=== PATIENT | female | born 2000 | race Caucasian/White ===

== ENCOUNTER 2018-04-11 06:49 | Day surgery (SDC) | payer OTHER, SELFPAY ==
[2018-04-09 08:52] VITALS: BMI 30.7
[2018-04-11] MEDS: LACTATED RINGERS 1,000 ML 42 ML IV (07:05)
[2018-04-11 07:10] VITALS: BP 108/68; PULSE 82; RESP 16; TEMP 36.9; O2SAT 100; BMI 30.7
--- NOTE | 2018-04-11 07:14 | SUR.OPER ---
Lithotomy on padded OR bed, head on pillow, arms secured on padded arm boards at <90 degrees abduction. Legs secured in padded yellow fins stirrups.
--- NOTE | 2018-04-11 07:38 | PM.PREOP ---
Pre-operative Note Interval Note Pre-op Check: Yes History & Physical exam performed today by Physician Changes: No
--- NOTE | 2018-04-11 07:38 | PM.HP.1 ---
History of Present Illness Date Patient Seen: 04/11/18 Time Patient Seen: 07:38 Chief complaint: [id number] Narrative: Patient is a 17-year-old with a known history of endometriosis who presents for Kyleena IUD insertion Patient is having pelvic pain. She was unable to tolerate Kyleena IUD insertion in the office. Patient History Medical History Asthma (Acute) Depression (Acute) Dysmenorrhea (Acute) Endometriosis (Acute) Menorrhagia (Acute) Pelvic pain (Acute) [place] teeth removed (Acute ~12/04/16) Surgical History Hx of tympanostomy tubes (Acute ~05/1999) Personal history of endometriosis (Resolved 09/09/17) Family & Social History Social History: household members family Tobacco & Substance use: Smoking Status Never smoker Meds Home Medications Medication Instructions Recorded Confirmed Type montelukast [Singulair] 10 mg PO QDAY #0 08/23/17 04/11/18 History ProAir HFA See Label Instructions .ROUTE 09/09/17 09/09/17 History .COMPLEX ondansetron 4 mg PO Q4H PRN 09/09/17 04/11/18 History norethindrone (contraceptive) 0.35 0.35 mg PO DAILY #28 tab 02/24/18 04/11/18 Rx mg tablet diclofenac sodium 75 mg 75 mg PO BID 04/01/18 04/11/18 History tablet,delayed release lamotrigine 100 mg tablet 100 mg PO DAILY 04/01/18 04/11/18 History propranolol 20 mg tablet 20 mg PO ONCE tab 04/01/18 04/11/18 History Allergies Allergy/AdvReac Type Severity Reaction Status Date / Time No Known Drug Allergies Allergy Verified 04/09/18 08:54 Exam Vital Signs (past 8 hours): - 04/11/18 07:10 Temperature 98.4 F Pulse Rate 82 Respiratory Rate 16 Blood Pressure 108/68 Pulse Oximetry 100 Oxygen Delivery Method Room Air Narrative Exam Narrative: HEENT: No thyromegaly, no anterior cervical or supraclavicular lymphadenopathy. Lungs:Clear to auscultation bilaterally, no wheezes. Cardiovascular: Regular rate and rhythm, no murmurs, rubs, or gallops Abdomen: Well-healed laparoscopy scars. No hepatosplenomegaly. No masses palpable. External genitalia: Normal Vagina: deferred Cervix: deferred Bimanual exam: deferred Assessment & Plan (1) Endometriosis of other specified sites: Current visit: Yes Status: Acute (2) Pelvic pain in female: Current visit: Yes Status: Acute Plan: Assessment/Plan Narrative: Assessment: 17-year-old with laparoscopic diagnosis endometriosis and persistent pelvic pain Plan: Kyleena IUD insertion The risks, benefits, and alternatives to the procedure were explained to the patient. The risks including bleeding, infection, and uterine perforation. She understands these risks and agrees to proceed. A consent form was signed. Time Spent With Patient Time with patient: less than 15 minutes
[2018-04-11] MEDS: MIDAZOLAM 2 MG/2 ML VIAL IV (07:48)
[2018-04-11 08:06] VITALS: BP 101/61; PULSE 97; RESP 16; TEMP 36.4; O2SAT 100
[2018-04-11 08:24] VITALS: BP 105/65; PULSE 81; O2SAT 100
[2018-04-11] MEDS: KETOROLAC 30 MG/ML VIAL IV (08:28)
[2018-04-11 08:41] VITALS: BP 107/68; PULSE 77; RESP 12; TEMP 36.7; O2SAT 100
[2018-04-11] MEDS: OXYCODONE/ACETAMINOPHEN 5/325 TABLET 1 TAB PO (08:57)
--- NOTE | 2018-04-11 09:00 | SUR.PHASEII ---
pt sat on the edge of the bed, expressed desire to d/c. IV removed. pt dressed then c/o 7/10 vaginal pain and nausea. Quease in place. Percocet provided. HOB lowered. Mom at bedside.
--- NOTE | 2018-04-11 09:06 | SUR.PHASEII ---
Pt rested for a few minutes and requested to d/c. Transferred self to wheelchair.
--- NOTE | 2018-04-12 10:05 | PM.GYNOP.1 ---
Operative Date/Time/Diagnoses Date of procedure: 04/11/18 Time of procedure: 08:20 Pre-op diagnosis: Endometriosis Pelvic pain Unable to tolerate IUD placement in the office Post-op diagnosis: same Procedure: Procedures Operation Date: 04/11/18 07:45 Actual Procedures Side Surgeon p Intrauterine Device Insertion Verónica Perez MD Indications: Endometriosis Pelvic Unable to tolerate IUD placement in the office Surgeon: Verónica Perez Anesthesia Type: Sedation Operative Notes Findings: 5-6 week size anteverted uterus Closure Type: not applicable Specimen(s): none Estimated blood loss (mL): 0 Blood products transfused: none Procedure in detail: After informed consent was obtained, the patient was taken to the operating room where she was placed in the dorsal supine position. After adequate IV sedation, the patient was placed in the dorsal lithotomy position, and prepped on the external genitalia. A pediatric bivalve speculum was placed into the vagina and the anterior lip of the cervix grasped with a single-tooth tenaculum. The cervix was cleaned x3 with Betadine. The Kyleena IUD passed easily into the endometrial cavity to the fundus of the uterus and was released without difficulty. The strings were cut to 1.5 cm. Single-tooth tenaculum was removed from the anterior lip of the cervix. The bivalve speculum was removed from the vagina. Sponge, lap, and instrument counts were correct x2. The patient tolerated the procedure well, and was taken to PACU in stable condition. Complications: none Post-operative Condition: stable Disposition: same day surgery Plan for aftercare: Home after recovery
== END 2018-04-11 09:05 | disposition home or self-care (01) ==
PROVIDERS: PCP Family Medicine; Visit Provider Obstetrics & Gynecology
PROC: (CPT 58300; principal; 2018-04-11 07:45)
DX: Z30.430 Encounter for insertion of intrauterine contraceptive device (principal); J45.909 Unspecified asthma, uncomplicated; N80.9 Endometriosis, unspecified
CPT/HCPCS: 58300; J1885; J2250; J2704; J3010

== ENCOUNTER → 2019-09-11 13:42 | Outpatient (CLI) | payer OTHER, SELFPAY ==
--- NOTE | 2019-09-11 | DI.US.S_ITS ---
ULTRASOUND OF LEFT BREAST: 09/11/2019 CLINICAL: Focal left breast pain. No prior exams were available for comparison. Real-time ultrasound of the left breast was performed. Watson scale images of the real-time examination were reviewed. No significant abnormalities were seen sonographically in the left breast. IMPRESSION: NEGATIVE There is no sonographic evidence of malignancy. There is no abnormality seen in the left breast to correspond with the area of clinical concern and pain in the sub-areolar depth, however, clinical followup is recommended for persistent or worsening symptoms or development of any clinically suspicious findings. This exam was interpreted at Station ID: [id number]. Electronically Signed By: Phong Mars M.D. aty/:09/11/2019 19:08:30 Ultrasound BI-RADS: 1 Negative
--- NOTE | 2019-09-11 | DI.US.S_ITS ---
ULTRASOUND OF RIGHT BREAST: 09/11/2019 CLINICAL: Focal right breast pain. No prior exams were available for comparison. Real-time ultrasound of the right breast was performed. Watson scale images of the real-time examination were reviewed. No significant abnormalities were seen sonographically in the right breast. IMPRESSION: NEGATIVE There is no sonographic evidence of malignancy. There are no abnormalities seen in the right breast to correspond with the areas of clinical concern and pain at 9 and 12 o'clock as well as the sub-areolar depth, however, recommend clinical follow up for persistent or worsening symptoms or development of any clinically suspicious findings. This exam was interpreted at Station ID: [id number]. Electronically Signed By: Phong Mars M.D. aty/:09/11/2019 19:06:27 Ultrasound BI-RADS: 1 Negative
[2019-09-11 15:45] LABS: Prolactin 11.6 ng/mL (3.0-18.6)
[2019-09-11 16:02] LABS: TSH w/ Reflex to FT4 3.04 uIU/mL (0.47-4.68)
== END ==
PROVIDERS: PCP Family Medicine; Referring Provider Physician Assistant; Visit Provider Physician Assistant
DX: N64.4 Mastodynia (principal); F41.8 Other specified anxiety disorders
CPT/HCPCS: 36415; 76642; 84146; 84443

== ENCOUNTER → 2019-11-01 08:40 | Outpatient (CLI) | payer OTHER, SELFPAY ==
[2019-11-02 08:47] LABS: COVID19 Sendout Not Detected (Not Detect)
== END ==
PROVIDERS: PCP Family Medicine; Visit Provider Physician Assistant
DX: Z11.59 Encounter for screening for other viral diseases (principal)
CPT/HCPCS: 87635

== ENCOUNTER 2019-11-04 08:29 | Day surgery (SDC) | payer OTHER, SELFPAY ==
[2019-11-04] VITALS (13 sets, daily range): BP systolic 79–128; BP diastolic 41–83; PULSE 91–111; RESP 8–16; TEMP 36.1–37.2; O2SAT 92–100; BMI 22.8
--- NOTE | 2019-11-04 09:25 | PM.HP.1 ---
History of Present Illness History of Present Illness Date Patient Seen: 11/04/19 Time Patient Seen: 09:26 Chief complaint: [id number] Narrative: Change in bowel movements with defecatory difficulty Patient History Medical History (Updated 04/11/18 @ 07:41 by Verónica Perez MD) Asthma (Acute) Depression (Acute) Dysmenorrhea (Acute) Endometriosis (Acute) Menorrhagia (Acute) Pelvic pain (Acute) Surgical History (Updated 09/17/17 @ 11:29 by Sara Harris LPN) Hx of tympanostomy tubes (Acute ~05/1999) Personal history of endometriosis (Resolved 09/09/17) [place] teeth removed (Acute ~12/04/16) Family & Social History Social History: household members family Tobacco & Substance use: Smoking Status Never smoker alcohol intake never Substance Use Type does not use Meds Home Medications and Allergies Home Medications Medication Instructions Recorded Confirmed Type montelukast [Singulair] 10 mg PO QDAY #0 08/23/17 11/04/19 History ProAir HFA See Rx Instructions .ROUTE .COMPLEX 09/09/17 11/04/19 History ondansetron 4 mg PO Q4H PRN 09/09/17 04/11/18 History norethindrone (contraceptive) 0.35 0.35 mg PO DAILY #28 tab 02/24/18 11/04/19 Rx mg tablet lamotrigine 100 mg tablet 100 mg PO DAILY 04/01/18 11/04/19 History bupropion HCl [Wellbutrin XL] 150 mg PO DAILY 11/04/19 11/04/19 History buspirone 10 mg PO BID 11/04/19 11/04/19 History fluticasone propion-salmeterol 1 inh INHALATION BID 11/04/19 11/04/19 History [Advair Diskus] Allergies Allergy/AdvReac Type Severity Reaction Status Date / Time No Known Drug Allergies Allergy Verified 11/04/19 08:42 Exam Vital Signs (past 8 hours): - 11/04/19 08:50 Temperature 98.9 F Pulse Rate 102 H Respiratory Rate 16 Blood Pressure 121/83 Pulse Oximetry 99 Oxygen Delivery Method Room Air Narrative Exam Narrative: Oropharynx free of lesions Chest clear to auscultation percussion Cardiac exam reveals no S3 or murmur Assessment & Plan Assessment & Plan narrative: Abnormal bowel movements need for colonoscopy to rule out structural lesion particularly given the scybalous nature of some of her stools. Risks, benefits, alternatives have been explained.
--- NOTE | 2019-11-04 09:27 | PM.OP.ENDO ---
Operative Date/Time/Diagnoses Date of procedure: 11/04/19 Time of procedure: 09:27 Pre-op diagnosis: See indication and findings Procedure & Clinicians Study performed: Colonoscopy Same procedure as scheduled: Yes Indications: Defecatory difficulty, change in bowel movements, probable IBS C Surgeon: Milton Castro Procedure Notes Procedure in detail: After informed consent was obtained the patient was placed in left lateral decubitus position. The video colonoscope was introduced the rectum slowly advanced to cecum. On slow withdrawal mucosa was carefully examined. The scope was removed. The patient tolerated the procedure well. Blood loss none Complications none Sedation Total sedation time 21 MINUTES VERSED 12 MG FENTANYL 200 micro g IV titration Findings 1. Even at the above doses sedation very difficult. Scope passed to distal descending colon. Was elected to stop procedure and have anesthesia staff in for better sedation.
[2019-11-04] MEDS: ONDANSETRON 4 MG/2 ML INJ IV (09:43)
[2019-11-04] MEDS: MIDAZOLAM 5 MG/5 ML VIAL 12 MG IV (09:47)
[2019-11-04] MEDS: fentaNYL 250 MCG/5 ML INJ IV (09:48)
--- NOTE | 2019-11-04 09:51 | SUR.OPER ---
PROCEDURE ABORTED DUE TO PATIENT VERBALIZING PAIN
--- NOTE | 2019-11-04 09:58 | SUR.PHASEI ---
Received patient to Phase I recovery with incomplete procedure due to patient's anxiety and large amount of sedation needed. Patient received 12 of versed IV and 200 fentanyl and was still unable to tolerate procedure. Patient denies pain. VSS. Patient states that she has always been anxious and worries about everything. Lead nurse and anesthesia aware of situation.
--- NOTE | 2019-11-04 10:08 | SUR.PHASEI ---
Advised patient and mother that patient would be able to finish the rest of her procedure under a general anesthesia. V/U. Mother signed consent.
[2019-11-04] MEDS: LACTATED RINGERS 1,000 ML 100 ML IV (10:10)
--- NOTE | 2019-11-04 10:42 | P.OP.ENDO_ITS ---
Operative Date/Time/Diagnoses Date of procedure: 11/04/19 Time of procedure: 10:42 Pre-op diagnosis: See indication and findings Post-op diagnosis: same Procedure & Clinicians Study performed: Colonoscopy Same procedure as scheduled: Yes Indications: Defecatory difficulties, chronic constipation, change in bowel movements. Surgeon: Milton Castro Procedure Notes Procedure in detail: After informed consent was obtained the patient was placed in left lateral decubitus position. The video colonoscope was introduced the rectum slowly advanced cecum. Preparation was excellent. On slow withdrawal mucosa was carefully examined. The scope was removed. The patient tolerated the procedure well. Blood loss none Complications none Sedation MAC Findings 1. Totally normal colonoscopy to cecum We will arrange for video defecography to be performed at [facility] with follow-up at least by telehealth with Dr. Guerra who last saw the patient in our group
== END 2019-11-04 12:03 | disposition home or self-care (01) ==
PROVIDERS: PCP Family Medicine; Referring Provider Internal Medicine Gastroenterology; Visit Provider Internal Medicine Gastroenterology
PROC: 0DJD8ZZ Inspection of Lower Intestinal Tract, Via Natural or Artificial Opening Endoscopic (ICD-10-PCS; CPT 45378; principal; 2019-11-04 09:00)
DX: K59.00 Constipation, unspecified (principal); R10.31 Right lower quadrant pain; K21.9 Gastro-esophageal reflux disease without esophagitis; F32.9 Major depressive disorder, single episode, unspecified; F41.9 Anxiety disorder, unspecified; J45.909 Unspecified asthma, uncomplicated
CPT/HCPCS: 45378; J2250; J2405; J2704; J3010

== ENCOUNTER → 2020-02-22 07:37 | Outpatient (CLI) | payer OTHER, SELFPAY ==
--- NOTE | 2020-02-22 | DI.NM.S_ITS ---
PROCEDURE: NM GASTRIC EMPTYING STUDY RADIOPHARMACEUTICAL: 1 mCi Tc-99m sulfur colloid in an egg sandwich. INDICATIONS: Right lower quadrant pain TECHNIQUE: A Tc-99m labeled sulfur colloid labeled egg sandwich or oatmeal was served to the patient. Anterior and posterior planar images of the abdomen were obtained at 0 minutes and 30 minutes, then at hourly intervals up to 4 hours. The patient was upright and ambulating during the interval. COMPARISON: None. FINDINGS: The stomach has normal size, morphology, and position. There is normal emptying of solid gastric contents from the stomach by visual inspection. No gastroesophageal reflux is visualized. The percentage of tracer retained at specific time points are as follows: Time point Percent gastric retention Normal range 30 minutes 82% 70% or more 1 hour 63% 30% to 90% 2 hours 23% 60% or less 3 hours 10% 30% or less 4 hours - 10% or less IMPRESSION: Normal gastric emptying study. Dictated by: Dilan Devi M.D. on 02/22/2020 at 11:54 Approved by: Dilan Devi M.D. on 02/22/2020 at 11:56
== END ==
PROVIDERS: PCP Family Medicine; Referring Provider Internal Medicine Gastroenterology; Visit Provider Internal Medicine Gastroenterology
DX: R10.31 Right lower quadrant pain (principal); R14.0 Abdominal distension (gaseous); K59.01 Slow transit constipation; K58.1 Irritable bowel syndrome with constipation
CPT/HCPCS: 78264; A9541

== ENCOUNTER 2020-03-05 10:41 | Emergency (ER) | payer OTHER, SELFPAY ==
[2020-03-05] VITALS (12 sets, daily range): BP systolic 114–123; BP diastolic 56–72; PULSE 76–105; RESP 16–25; TEMP 36.8; O2SAT 97–100; BMI 22.4
[2020-03-05 11:43] LABS: COVID19 -Nasal RAPID Negative (Negative)
[2020-03-05 11:56] LABS: Add Manual Diff / Slide Review NO; Basophils Absolute Auto 0 /uL (0-100); Basophils Percent Auto 0.5 % (0-2); Eosinophils Absolute Auto 100 /uL (0-450); Eosinophils Percent Auto 3.3 % (2-4); Hematocrit 39.5 % (36-46); Hemoglobin 13.2 g/dL (12.0-16.0); Lymphocytes Absolute Auto 1400 /uL (1100-4500); Lymphocytes Percent Auto 36.2 % (25-40); Mean Corpuscular HGB Conc 33.4 % (30-36); Mean Corpuscular Volume 89.9 fL (80-100); Monocytes Absolute Auto 300 /uL (0-900); Monocytes Percent Auto 8.2 % (3-14); Neutrophils Absolute Auto 2000 /uL (1500-7000); Neutrophils Percent Auto 51.8 % (50-75); Platelet Count 273 X10^3/uL (150-400); Red Blood Cell Count 4.39 X10^6/uL (4.0-5.2); Red Cell Distribution Width 12.8 % (11.6-14.8)
[2020-03-05 11:58] LABS: Alanine Aminotransferase 12 IU/L (<35); Albumin 4.3 g/dL (3.5-5.0); Albumin Globulin Ratio 1.3 (1.0-2.8); Alkaline Phosphatase 36 U/L (38-126); Aspartate Aminotransferase 20 IU/L (14-36); BUN Creatinine Ratio 13.2 (6-22); Bilirubin Total 0.3 mg/dL (0.2-1.3); Blood Urea Nitrogen 9 mg/dL (7-17); Calcium 9.5 mg/dL (8.4-10.2); Carbon Dioxide 28 mmol/L (22-32); Chloride 105 mmol/L (98-107); Estimated Glomerular Filt Rate > 60.0 mL/min (>60); Globulin 3.2 g/dL (1.7-4.1); Glucose 100 mg/dL (70-100); Potassium 4.3 mmol/L (3.4-5.1); Sodium 139 mmol/L (137-145); Total Protein 7.5 g/dL (6.3-8.2)
[2020-03-05 12:16] LABS: HEMOLYSIS < 15 (0-50)
--- NOTE | 2020-03-05 12:22 | ED_ITS ---
HPI - Chest Pain <Sea MERLENE Abernathy - Last Filed: 03/05/20 14:40> General Chief Complaint: Shortness of Breath/Dyspnea Stated Complaint: SOB/ CHEST PAIN/ DIZZ/ HEARTS RACING Time Seen by Provider: 03/05/20 11:06 Source: patient and family Mode of arrival: Ambulatory Limitations: no limitations History of Present Illness HPI narrative: Is a 19-year-old female, nonsmoker, with history significant for depression, anxiety, endometriosis, asthma presents to ED with her mother with chief complain of 2 week duration of sharp and pressure-like mid chest pain, tachycardia rate in 120s to 140s at rest, lightheadedness. Patient reports intermittent chest pain which lasts for several hours when it comes and frequently wakes her up from sleep and feeling lightheaded all the time. Patient does not associated tachycardia with activities or feeling anxious. Mother reports patient is currently taking high dose of norethidorone continuously without break also has Kyleena IUD for severe endometriosis. Patient denies history of blood clots, prolonged bed rest or stool recent surgeries, syncopal episode, hemoptysis, or leg pain. Patient denies chest pain associated with changing in position. No history of GERD. Patient denies lifting heavy objects before chest pain started. LMP 3 years ago. Patient reports intermittent dry and nonproductive cough. Patient denies fever, chills, vomiting but some nausea occasionally. She denies urinary symptoms or abdominal pain. Mother reports patient is currently taking propanolol, clonazepam, buspirone, BuSpar, and lamotrigine for depression and anxiety. Patient has a referral to principal librarian and has not been evaluated as of yet. Related Data Home Medications Medication Instructions Recorded Confirmed montelukast [Singulair] 10 mg PO QDAY #0 08/23/17 11/04/19 ProAir HFA See Rx Instructions .ROUTE .COMPLEX 09/09/17 11/04/19 ondansetron 4 mg PO Q4H PRN 09/09/17 04/11/18 lamotrigine 100 mg tablet 100 mg PO DAILY 04/01/18 11/04/19 bupropion HCl [Wellbutrin XL] 150 mg PO DAILY 11/04/19 11/04/19 buspirone 10 mg PO BID 07/01/20 07/01/20 fluticasone propion-salmeterol 1 inh INHALATION BID 11/04/19 11/04/19 [Advair Diskus] Previous Rx's Medication Instructions Recorded norethindrone (contraceptive) 0.35 0.35 mg PO DAILY #28 tab 02/24/18 mg tablet Allergies Allergy/AdvReac Type Severity Reaction Status Date / Time No Known Drug Allergies Allergy Verified 11/04/19 08:42 Review of Systems <MERLENE Avila - Last Filed: 03/05/20 14:40> Review of Systems Narrative: General: Denies fever, chills, fatigue, malaise, (+) generalized weakness, sweats. HEENT: Denies sinus pain, ear pain, sore throat, difficulty swallowing, dizziness. Respiratory: Denies dyspnea, cough, wheezing, hemoptysis, sputum. Cardiovascular: See HPI Gastrointestinal: Denies (+) nausea, vomiting, abdominal pain, diarrhea, (+) constipation, melena. : Denies dysuria, frequency, incontinence, hematuria, urinary retention. Musculoskeletal: Denies weakness, joint pain or bony pain. Skin: Denies rash, skin lesions, or other. Neurologic: Denies weakness, headache, numbness, change in speech, confusion, seizures, incoordination. Psychiatric: No concerning psychosocial issues. 12-point review of systems is negative except for those stated above. Patient History <MERLENE Avila - Last Filed: 03/05/20 14:40> Medical History (Updated 03/05/20 @ 13:39 by MERLENE Avila) Anxiety (Acute) Asthma (Acute) Depression (Acute) Dysmenorrhea (Acute) Endometriosis (Acute) Menorrhagia (Acute) Pelvic pain (Acute) Surgical History (Updated 03/05/20 @ 12:38 by MERLENE Avila) Hx of tympanostomy tubes (Acute ~05/1999) Personal history of endometriosis (Resolved 09/09/17) Hugo teeth removed (Acute ~12/04/16) Social History (Updated 03/05/20 @ 12:38 by MERLENE Avila) household members: family Smoking Status: Never smoker alcohol intake: current substance use type: does not use Smoking Status: Never smoker Substance Use Type: does not use Exam <ELAINE AvilaP - Last Filed: 03/05/20 14:40> Narrative Exam Narrative: GEN: Alert, oriented x 3, well appearing and nourished, and in no acute distress. Head: Normal cephalic, atraumatic. No scalp or temporal tenderness, palpable mass or rash. EYES: Pupils are equal, round, and reactive to light and accommodation. Extraocular muscles are intact bilaterally. There is no subconjunctival hemorrhage, exudate and sclera non-icteric. ENT: Hearing grossly intact. Nose without bleeding, purulent discharge or deviation. Mucous membrane moist, no mucosal lesion. Throat without erythema, tonsillar hypertrophy or exudate. Uvula in midline, airway patent. Neck: Trachea in midline. No JVD, non-tender without lymphadenopathy. No masses or thyroid megaly. Supple, non-tender and no meningeal signs. CARDIAC: Normal regular rate and rhythm without murmurs, gallops, or rubs. No chest wall tenderness. No peripheral edema, cyanosis or pallor. Capillary refill is less than 2 seconds. RESPIRATORY: Lungs are clear to auscultate bilaterally. No cough, wheezes, rales, or rhonchi. No stridor, respiratory distress, increase work of breathing, or accessary muscle used. ABD: Abdomen soft, nontender and non-distended. No guarding or rebound tenderness to palpate. Bowel sounds are normal in all 4 quadrants. There is no palpable masses or organomegaly. EXT: Full painless ROM of all extremities with no loss of sensation, strength, effusion or edema. SKIN: Warm, dry, normal color for patient. No erythema, lesions or rash over visible areas. BACK: Nontender without deformity or crepitance. No flank tenderness. NEUROLOGICAL: Alert and oriented to place, time and person. Sensation and motor function intact bilaterally. No facial droops, dysphasia. PSYCHIATRIC: Good judgement and reason, without hallucinations, abnormal affect or abnormal behaviors during the examination. Patient is not suicidal. Initial Vital Signs Initial Vital Signs: Vital Signs Temperature 98.3 F 03/05/20 10:49 Pulse Rate 91 H 03/05/20 10:49 Respiratory Rate 16 03/05/20 10:49 Blood Pressure 114/56 L 03/05/20 10:49 Pulse Oximetry 98 03/05/20 10:49 <Viji Gould DO - Last Filed: 03/06/20 07:30> Initial Vital Signs Initial Vital Signs: Vital Signs Temperature 98.3 F 03/05/20 10:49 Pulse Rate 91 H 03/05/20 10:49 Respiratory Rate 16 03/05/20 10:49 Blood Pressure 114/56 L 03/05/20 10:49 Pulse Oximetry 98 03/05/20 10:49 Scores <Sea GaleasELAINE reedP - Last Filed: 03/05/20 14:40> GCS Krista coma scale eye opening: Spontaneous Krista coma scale verbal response: Orientated Krista coma scale motor response: Obey commands Krista coma scale total score: 15 HEART Score Heart Score history: Slightly Suspicious Heart Score EKG: Normal Heart Score Age: < 45 years old Heart Score risk factors: No known risk factors Heart Score troponin: < or = to normal limit Heart Score Total: 0 Wells' Criteria for PE Clinical signs and symptoms of DVT: No PE is #1 Dx or equally likely: No Heart rate > 100: No Immobilization at least 3 days or surg in previous 4 weeks: No History of PE or DVT: No Hemoptysis: No Malignancy w/Treatment within 6 months or palliative: No Wells' PE Score total: 0 Course <Sea SantoangFrancieMERLENE Garcia - Last Filed: 03/05/20 14:40> Orders Ordered: Discontinued Medications Sodium Chloride (Normal Saline 0.9%) 500 mls @ 1,000 mls/hr IV BOLUS ONE Stop: 03/05/20 14:18 Last Infusion: 03/05/20 14:41 Dose: 0 mls/hr Documented by: Admin: 03/05/20 13:51 Dose: 1,000 mls/hr Documented by: ANITA Ketorolac Tromethamine (Toradol) 15 mg IV NOW ONE Stop: 03/05/20 13:42 Last Admin: 03/05/20 13:52 Dose: 15 mg Documented by: ANITA Reevaluation(s) Reevaluation #1: During getting orthostatic blood pressure and heart rate, patient reports some discomfort in her chest and dizziness. Treating patient w ith 500 ml of NS infusion and Toradol 15mg IV before discharging to home. Labs, EKG, imaging test findings discussed with patient and mother and advised to follow up with principal librarian as referred for further evaluation. Time: 14:00 Reevaluation #2: Patient reports pain improved after Toradol. Time: 14:40 Vital Signs Vital signs: Vital Signs - 8 hr 03/05/20 10:49 03/05/20 11:57 03/05/20 12:00 Temperature 98.3 F Pulse Rate 91 H 78 78 Pulse Rate [Orthostatic Lying] Pulse Rate [Orthostatic Sitting] Pulse Rate [Orthostatic Standing] Respiratory Rate 16 20 18 Blood Pressure 114/56 L 118/56 L Blood Pressure [Orthostatic Lying] Blood Pressure [Orthostatic Sitting] Blood Pressure [Orthostatic Standing] Pulse Oximetry 98 97 97 03/05/20 12:30 03/05/20 13:00 03/05/20 13:30 Temperature Pulse Rate 82 86 82 Pulse Rate [Orthostatic Lying] Pulse Rate [Orthostatic Sitting] Pulse Rate [Orthostatic Standing] Respiratory Rate 21 22 21 Blood Pressure 120/58 L 115/65 114/58 L Blood Pressure [Orthostatic Lying] Blood Pressure [Orthostatic Sitting] Blood Pressure [Orthostatic Standing] Pulse Oximetry 98 97 97 03/05/20 13:41 03/05/20 13:43 03/05/20 13:44 Temperature Pulse Rate 76 88 101 H Pulse Rate [Orthostatic Lying] Pulse Rate [Orthostatic Sitting] Pulse Rate [Orthostatic Standing] Respiratory Rate 19 25 H 20 Blood Pressure 114/59 L 116/68 119/66 Blood Pressure [Orthostatic Lying] Blood Pressure [Orthostatic Sitting] Blood Pressure [Orthostatic Standing] Pulse Oximetry 98 97 98 03/05/20 14:00 03/05/20 14:02 Temperature Pulse Rate 80 Pulse Rate [Orthostatic Lying] 77 Pulse Rate [Orthostatic Sitting] 87 Pulse Rate [Orthostatic Standing] 105 H Respiratory Rate 21 Blood Pressure 123/62 Blood Pressure [Orthostatic Lying] 114/59 L Blood Pressure [Orthostatic Sitting] 116/68 Blood Pressure [Orthostatic Standing] 119/66 Pulse Oximetry 97 <Viji Gould DO - Last Filed: 03/06/20 07:30> Orders Ordered: Discontinued Medications Sodium Chloride (Normal Saline 0.9%) 500 mls @ 1,000 mls/hr IV BOLUS ONE Stop: 03/05/20 14:18 Last Infusion: 03/05/20 14:41 Dose: 0 mls/hr Documented by: ANITA Ball: 03/05/20 13:51 Dose: 1,000 mls/hr Documented by: ANITA Ketorolac Tromethamine (Toradol) 15 mg IV NOW ONE Stop: 03/05/20 13:42 Last Admin: 03/05/20 13:52 Dose: 15 mg Documented by: ANITA Vital Signs Vital signs: Vital Signs - 8 hr 03/05/20 10:49 03/05/20 11:57 03/05/20 12:00 Temperature 98.3 F Pulse Rate 91 H 78 78 Pulse Rate [Orthostatic Lying] Pulse Rate [Orthostatic Sitting] Pulse Rate [Orthostatic Standing] Respiratory Rate 16 20 18 Blood Pressure 114/56 L 118/56 L Blood Pressure [Orthostatic Lying] Blood Pressure [Orthostatic Sitting] Blood Pressure [Orthostatic Standing] Pulse Oximetry 98 97 97 03/05/20 12:30 03/05/20 13:00 03/05/20 13:30 Temperature Pulse Rate 82 86 82 Pulse Rate [Orthostatic Lying] Pulse Rate [Orthostatic Sitting] Pulse Rate [Orthostatic Standing] Respiratory Rate 21 22 21 Blood Pressure 120/58 L 115/65 114/58 L Blood Pressure [Orthostatic Lying] Blood Pressure [Orthostatic Sitting] Blood Pressure [Orthostatic Standing] Pulse Oximetry 98 97 97 03/05/20 13:41 03/05/20 13:43 03/05/20 13:44 Temperature Pulse Rate 76 88 101 H Pulse Rate [Orthostatic Lying] Pulse Rate [Orthostatic Sitting] Pulse Rate [Orthostatic Standing] Respiratory Rate 19 25 H 20 Blood Pressure 114/59 L 116/68 119/66 Blood Pressure [Orthostatic Lying] Blood Pressure [Orthostatic Sitting] Blood Pressure [Orthostatic Standing] Pulse Oximetry 98 97 98 03/05/20 14:00 03/05/20 14:02 Temperature Pulse Rate 80 Pulse Rate [Orthostatic Lying] 77 Pulse Rate [Orthostatic Sitting] 87 Pulse Rate [Orthostatic Standing] 105 H Respiratory Rate 21 Blood Pressure 123/62 Blood Pressure [Orthostatic Lying] 114/59 L Blood Pressure [Orthostatic Sitting] 116/68 Blood Pressure [Orthostatic Standing] 119/66 Pulse Oximetry 97 MDM - Chest Pain <MERLENE Avila - Last Filed: 03/05/20 14:40> Differential Diagnosis Differential diagnosis: Likely atypical chest pain, costochondritis and other (Dehydration, , hyperthyroidism, electrolytes imbalance, GERD, anxiety) Medical Records Data Attestation: I reviewed the patient's medical records. Lab Data Attestation: I reviewed the patient's lab results. Result diagrams: 03/05/20 11:20 03/05/20 11:20 Labs: Lab Results 03/05/20 03/05/20 03/05/20 Range/Units 11:10 11:20 11:20 WBC 4.0 L (4.5-11.0) X10^3/uL RBC 4.39 (4.0-5.2) X10^6/uL Hgb 13.2 (12.0-16.0) g/dL Hct 39.5 (36-46) % MCV 89.9 (80-100) fL MCH 30.0 (26-34) PG MCHC 33.4 (30-36) % RDW 12.8 (11.6-14.8) % Plt Count 273 (150-400) X10^3/uL Neut % (Auto) 51.8 (50-75) % Lymph % (Auto) 36.2 (25-40) % Schleicher % (Auto) 8.2 (3-14) % Eos % (Auto) 3.3 (2-4) % Baso % (Auto) 0.5 (0-2) % Neut # (Auto) 2000 (3208-5412) /uL Lymph # (Auto) 1400 (5188-1459) /uL Schleicher # (Auto) 300 (0-900) /uL Eos # (Auto) 100 (0-450) /uL Baso # (Auto) 0 (0-100) /uL D-Dimer (<230) ng/mL Sodium 139 (137-145) mmol/L Potassium 4.3 (3.4-5.1) mmol/L Chloride 105 (98-107) mmol/L Carbon Dioxide 28 (22-32) mmol/L BUN 9 (7-17) mg/dL Creatinine 0.68 (0.52-1.04) mg/dL Estimated GFR > 60.0 (>60) mL/min BUN/Creatinine Ratio 13.2 (6-22) Glucose 100 (70-100) mg/dL Calcium 9.5 (8.4-10.2) mg/dL Total Bilirubin 0.3 (0.2-1.3) mg/dL AST 20 (14-36) IU/L ALT 12 (<35) IU/L Alkaline Phosphatase 36 L (38-126) U/L Total Creatine Kinase (30-135) U/L CK-MB (CK-2) CK-MB (CK-2) Rel Index Troponin I (0.01-0.034) ng/mL Total Protein 7.5 (6.3-8.2) g/dL Albumin 4.3 (3.5-5.0) g/dL Globulin 3.2 (1.7-4.1) g/dL Albumin/Globulin Ratio 1.3 (1.0-2.8) TSH (0.47-4.68) uIU/mL COVID-19 PCR Negative (Negative) 03/05/20 03/05/20 03/05/20 Range/Units 11:20 11:20 11:20 WBC (4.5-11.0) X10^3/uL RBC (4.0-5.2) X10^6/uL Hgb (12.0-16.0) g/dL Hct (36-46) % MCV (80-100) fL MCH (26-34) PG MCHC (30-36) % RDW (11.6-14.8) % Plt Count (150-400) X10^3/uL Neut % (Auto) (50-75) % Lymph % (Auto) (25-40) % Schleicher % (Auto) (3-14) % Eos % (Auto) (2-4) % Baso % (Auto) (0-2) % Neut # (Auto) (9572-2929) /uL Lymph # (Auto) (0151-6560) /uL Schleicher # (Auto) (0-900) /uL Eos # (Auto) (0-450) /uL Baso # (Auto) (0-100) /uL D-Dimer < 200 (<230) ng/mL Sodium (137-145) mmol/L Potassium (3.4-5.1) mmol/L Chloride (98-107) mmol/L Carbon Dioxide (22-32) mmol/L BUN (7-17) mg/dL Creatinine (0.52-1.04) mg/dL Estimated GFR (>60) mL/min BUN/Creatinine Ratio (6-22) Glucose (70-100) mg/dL Calcium (8.4-10.2) mg/dL Total Bilirubin (0.2-1.3) mg/dL AST (14-36) IU/L ALT (<35) IU/L Alkaline Phosphatase (38-126) U/L Total Creatine Kinase 38 (30-135) U/L CK-MB (CK-2) TNP CK-MB (CK-2) Rel Index TNP Troponin I < 0.012 (0.01-0.034) ng/mL Total Protein (6.3-8.2) g/dL Albumin (3.5-5.0) g/dL Globulin (1.7-4.1) g/dL Albumin/Globulin Ratio (1.0-2.8) TSH 1.66 (0.47-4.68) uIU/mL COVID-19 PCR (Negative) Point of Care Testing Test Results Negative Urine Dip Bedside Urine Glucose Negative Bedside Urine Bilirubin - Negative Bedside Urine Ketone - Negative Urine Specific Galva 1.015 Bedside Urine Occult Blood - Negative Bedside Urine pH 6.5 Bedside Urine Protein - Negative Bedside Urine Urobilinogen - Negative Bedside Urine Nitrite - Negative Bedside Urine Leukocytes - Negative Esterase Imaging Data Chest x-ray: Radiologist's Impression: [address] [address] XRay Report Signed Patient: July Posada LMR#: [id number] : 2000Acct:[id number] Age/Sex: 19 FDate of Service: 03/05/20 Loc: ED Accession Number: [id number] Procedure: XR chest 1V Ordering Provider: Sea Abernathy PROCEDURE: XR CHEST 1V INDICATIONS: chest pain, tachycardia TECHNIQUE: One view of the chest was acquired. COMPARISON: [facility] , CHEST 2 VIEW, 10/01/2006, 13:40. FINDINGS: Surgical changes and devices: None. Lungs and pleura: On this semiupright portable chest examination, no large pneumothorax or large pleural effusions are seen. No focal infiltrates are seen. Mediastinum: Mediastinal contours appear normal. Heart size is normal. Bones and chest wall: No suspicious bony lesions. Overlying soft tissues appear unremarkable. IMPRESSION: Portable chest within normal limits. Dictated by: Fausto Ordaz M.D. on 03/05/2020 at 11:41 Approved by: Fausto Ordaz M.D. on 03/05/2020 at 11:42 ECG Data Attestation: I personally reviewed and interpreted this ECG as follows: Prior ECG tracings: not available for review Interpretation: Sinus rhythm rate at 78. Normal Delta ND interval 137, QRS duration 88, QT/QTC 343/[address] changes MDM Narrative Medical decision making narrative: This is a 19 year female with history significant for anxiety, depression, endometriosis who is currently taking high strength progesterone and has an IUD Kyleena in placed presents to ED with 2 week duration of sharp and pressure-like mid chest discomfort, dizziness, tachycardia and concerned for pulmonary embolism. Patient currently takes several medications for depression and anxiety including atenolol at this time. EKG without acute ST changes and rate at 78. classroom monitor at the bedside had not showed tachycardia while in ED. physical exam is unremarkable. CBC with stable H&H. D-dimer was negative. Unremarkable chemistry and cardiac enzymes. Given her symptoms going on for 2 weeks, no repeat cardiac enzymes were done. Chest x-ray without acute findings. Patient is not and no indications for UTI. TSH within normal limits. Mildly elevated heart rate during orthostatic vital signs with some symptoms as chest discomfort and dizziness. Patient was treated with IV fluid and Toradol before urged to home. Patient and mother advised to follow-up with principal librarian as planned and referred by primary care physician and return precautions were discussed with patient and mother. They both verbalized understanding in agreement with the treatment plan. <Viji Gould, DO - Last Filed: 03/06/20 07:30> Lab Data Labs: Lab Results 03/05/20 03/05/20 03/05/20 Range/Units 11:10 11:20 11:20 WBC 4.0 L (4.5-11.0) X10^3/uL RBC 4.39 (4.0-5.2) X10^6/uL Hgb 13.2 (12.0-16.0) g/dL Hct 39.5 (36-46) % MCV 89.9 (80-100) fL MCH 30.0 (26-34) PG MCHC 33.4 (30-36) % RDW 12.8 (11.6-14.8) % Plt Count 273 (150-400) X10^3/uL Neut % (Auto) 51.8 (50-75) % Lymph % (Auto) 36.2 (25-40) % Schleicher % (Auto) 8.2 (3-14) % Eos % (Auto) 3.3 (2-4) % Baso % (Auto) 0.5 (0-2) % Neut # (Auto) 2000 (2769-5530) /uL Lymph # (Auto) 1400 (8461-6345) /uL Schleicher # (Auto) 300 (0-900) /uL Eos # (Auto) 100 (0-450) /uL Baso # (Auto) 0 (0-100) /uL D-Dimer (<230) ng/mL Sodium 139 (137-145) mmol/L Potassium 4.3 (3.4-5.1) mmol/L Chloride 105 (98-107) mmol/L Carbon Dioxide 28 (22-32) mmol/L BUN 9 (7-17) mg/dL Creatinine 0.68 (0.52-1.04) mg/dL Estimated GFR > 60.0 (>60) mL/min BUN/Creatinine Ratio 13.2 (6-22) Glucose 100 (70-100) mg/dL Calcium 9.5 (8.4-10.2) mg/dL Total Bilirubin 0.3 (0.2-1.3) mg/dL AST 20 (14-36) IU/L ALT 12 (<35) IU/L Alkaline Phosphatase 36 L (38-126) U/L Total Creatine Kinase (30-135) U/L CK-MB (CK-2) CK-MB (CK-2) Rel Index Troponin I (0.01-0.034) ng/mL Total Protein 7.5 (6.3-8.2) g/dL Albumin 4.3 (3.5-5.0) g/dL Globulin 3.2 (1.7-4.1) g/dL Albumin/Globulin Ratio 1.3 (1.0-2.8) TSH (0.47-4.68) uIU/mL COVID-19 PCR Negative (Negative) 1003/05/20 03/05/20 Range/Units 11:20 11:20 11:20 WBC (4.5-11.0) X10^3/uL RBC (4.0-5.2) X10^6/uL Hgb (12.0-16.0) g/dL Hct (36-46) % MCV (80-100) fL MCH (26-34) PG MCHC (30-36) % RDW (11.6-14.8) % Plt Count (150-400) X10^3/uL Neut % (Auto) (50-75) % Lymph % (Auto) (25-40) % Schleicher % (Auto) (3-14) % Eos % (Auto) (2-4) % Baso % (Auto) (0-2) % Neut # (Auto) (4296-5751) /uL Lymph # (Auto) (5812-7369) /uL Schleicher # (Auto) (0-900) /uL Eos # (Auto) (0-450) /uL Baso # (Auto) (0-100) /uL D-Dimer < 200 (<230) ng/mL Sodium (137-145) mmol/L Potassium (3.4-5.1) mmol/L Chloride (98-107) mmol/L Carbon Dioxide (22-32) mmol/L BUN (7-17) mg/dL Creatinine (0.52-1.04) mg/dL Estimated GFR (>60) mL/min BUN/Creatinine Ratio (6-22) Glucose (70-100) mg/dL Calcium (8.4-10.2) mg/dL Total Bilirubin (0.2-1.3) mg/dL AST (14-36) IU/L ALT (<35) IU/L Alkaline Phosphatase (38-126) U/L Total Creatine Kinase 38 (30-135) U/L CK-MB (CK-2) TNP CK-MB (CK-2) Rel Index TNP Troponin I < 0.012 (0.01-0.034) ng/mL Total Protein (6.3-8.2) g/dL Albumin (3.5-5.0) g/dL Globulin (1.7-4.1) g/dL Albumin/Globulin Ratio (1.0-2.8) TSH 1.66 (0.47-4.68) uIU/mL COVID-19 PCR (Negative) Point of Care Testing Test Results Negative Urine Dip Bedside Urine Glucose Negative Bedside Urine Bilirubin - Negative Bedside Urine Ketone - Negative Urine Specific Galva 1.015 Bedside Urine Occult Blood - Negative Bedside Urine pH 6.5 Bedside Urine Protein - Negative Bedside Urine Urobilinogen - Negative Bedside Urine Nitrite - Negative Bedside Urine Leukocytes - Negative Esterase Discharge Plan Departure Patient Disposition: Home Clinical Impression: Atypical chest pain, History of tachycardia Discharge Date/Time: 03/05/20 14:43 Instructions: DI for Atypical Chest Pain, DI for Tachycardia Activity Restrictions/Additional Instructions: You have been diagnosed with [atypical chest pain and history of tachycardia. No indications for DE, pulmonary embolism, pulmonary pathology. Lab tests are assuring. Urine test was negative and no indications for UTI.]. What to do: *Take your medications as directed. *Follow up with your primary care provider in 2-3 days, call for an appointment. Please follow-up with principal librarian as you planned. Let them know you were seen in the ED and that we asked you to be seen in follow up. *Return to ED if you have any new, worsening, or concerning symptoms, such as [worsening pain, different chest pain, unable to tolerate fluids, breathing difficulty, worsening dizziness, fever, or any acute concerns]. Prescriptions: No Action montelukast [Singulair] 10 MG tablet 10 mg PO QDAY Qty: 0 RF: 0 norethindrone (contraceptive) [Ortho Micronor] 0.35 mg tablet 0.35 mg PO DAILY Qty: 28 RF: 6 lamotrigine 100 mg tablet 100 mg PO DAILY RF: 0 ondansetron 4 mg Tablet,Disintegrating 4 mg PO Q4H PRN (Reason: Nausea) RF: 0 ProAir HFA See Rx Instructions .ROUTE .COMPLEX RF: 0 fluticasone propion-salmeterol [Advair Diskus] 250-50 mcg/dose blister with device 1 inh INHALATION BID RF: 0 buspirone 10 mg tablet 10 mg PO BID RF: 0 bupropion HCl [Wellbutrin XL] 150 mg tablet extended release 24 hr 150 mg PO DAILY RF: 0 Referrals: Sandy Gimenez ARNP [Primary Care Provider] - <Viji Gould DO - Last Filed: 03/06/20 07:30> Cosign ED Attending Cosdanaeature Attestation: I was immediately available in the department for consultation. Documentation has been reviewed. I agree with assessment and plan.
[2020-03-05 12:42] LABS: D Dimer < 200 ng/mL (<230)
[2020-03-05 12:44] LABS: Creatine Kinase 38 U/L (30-135)
[2020-03-05 12:57] LABS: Troponin I < 0.012 ng/mL (0.01-0.034)
[2020-03-05 13:16] LABS: Thyroid Stimulating Hormone 1.66 uIU/mL (0.47-4.68)
[2020-03-05] MEDS: SODIUM CHLORIDE 0.9% 500 ML 1000 ML IV (13:51)
[2020-03-05] MEDS: KETOROLAC 60 MG/2 ML VIAL 15 MG IV (13:52)
== END 2020-03-05 14:43 | disposition home or self-care (01) ==
PROVIDERS: Emergency Medicine; Emergency Provider Nurse Practitioner Family; PCP Nurse Practitioner
DX: R07.89 Other chest pain (principal); R00.0 Tachycardia, unspecified; R06.02 Shortness of breath
CPT/HCPCS: 36415; 71045; 80053; 81003; 81025; 82550; 84443; 84484; 85025; 85379; 87635; 93005; 93010; 96361; 96374; 99284; J1885